=== PATIENT | male | born 1970 | race Two or more races ===

== ENCOUNTER 2022-05-20 23:59 | Emergency (ER) | payer MEDICAID, OTHER ==
[~2022-05-20] VITALS: Ht 177.8 cm; Wt 68.0 kg
[2022-05-21 01:07] LABS: Basophils # (auto) 0 10 ^3/uL (0-0.2); Basophils % (auto) 0.3 % (0.0-2.0); Eosinophils # (auto) 0 10 ^3/uL (0-0.8); Eosinophils % (auto) 0.3 % (0.0-7.0); Hemoglobin 12.4 g/dL (13.5-17.5); Lymphocytes # (auto) 1.5 10 ^3/uL (0.4-5.4); Lymphocytes % (auto) 11.2 % (10.0-50.0); Mean Corpuscular Hemoglobin 33.2 pg (28.0-32.0); Mean Corpuscular Hgb Conc. 33.6 g/dL (32.0-36.0); Mean Corpuscular Volume 99.1 fL (80.0-100.0); Monocytes # (auto) 0.7 10 ^3/uL (0-1.3); Monocytes % (auto) 5.2 % (0.0-12.0); Neutrophils # (auto) 11.3 10 ^3/uL (1.6-8.6); Red Blood Cells 3.74 10^6/uL (4.5-5.90); Red Cell Distribution Width 12.7 % (11.8-14.3); White Blood Cell 13.6 10^3/uL (4.4-10.8)
[2022-05-21 01:36] LABS: Magnesium 2.2 mg/dL (1.6-2.6); Phosphorus 3.4 mg/dL (2.5-4.90)
[2022-05-21] MEDS ORDERED: HYDROcodone-ACET 5/325MG TAB PO ONE (03:00)
[2022-05-21 03:23] LABS: Albumin 3.5 g/dL (3.4-5.0); Calcium 7.8 mg/dL (8.5-10.1); Potassium 3.4 mmol/L (3.5-5.1)
[2022-05-21 03:28] LABS: Bilirubin, Total 0.5 mg/dL (0.2-1.0)
[2022-05-21 03:29] LABS: BUN/Creatinine Ratio 16.7
[2022-05-21] MEDS ORDERED: CALCIUM ACETATE 667 MG CAP PO ONE (03:45)
[2022-05-21 03:53] VITALS: BP 120/66
== END 2022-05-21 03:44 | disposition left against medical advice (07) ==
LOC: ER 23:59 → EDBD 23:59 → ER 05-21 03:44
DX: R56.9 Unspecified convulsions (principal); R11.0 Nausea
CPT/HCPCS: 36415; 70450; 71045; 72170; 80053; 83735; 84100; 84484; 85025; 93005